=== PATIENT | female | born 1950 | race Caucasian/White ===

== ENCOUNTER 2017-05-21 20:44 | Emergency (ER) | payer SELFPAY ==
[~2017-05-21] VITALS: Ht 160 cm; Wt 63.6 kg
[2017-05-21] MEDS ORDERED: METF500T4 PO (20:52)
[2017-05-21] MEDS ORDERED: VALE100C PO (20:52)
[2017-05-21] MEDS ORDERED: OMEP20 PO (20:52)
[2017-05-21] MEDS ORDERED: CYAN500 PO (20:52)
[2017-05-21] MEDS ORDERED: LORA0.5T2 PO (20:52)
[2017-05-21] MEDS ORDERED: MEMA10TA11 PO (20:52)
[2017-05-21] MEDS ORDERED: ASCO500 PO (20:52)
[2017-05-21] MEDS ORDERED: GINK60CA2 PO (20:52)
[2017-05-21] MEDS ORDERED: VENL-68 PO (20:52)
[2017-05-21] MEDS ORDERED: LISI-660 PO (20:52)
[2017-05-21] MEDS ORDERED: MELA3TAB66 PO (20:52)
[2017-05-21] MEDS ORDERED: DONE10TA8 PO (20:52)
[2017-05-21] MEDS ORDERED: QUET25TA PO (20:52)
[2017-05-21] MEDS ORDERED: ASPIRIN 81 MG CHEWABLE TABLET PO ONE (21:30)
[2017-05-21 22:03] LABS: APPEARANCE,URINE CLEAR (CLEAR); GLUCOSE, URINE (UA) NEGATIVE (NEGATIVE); KETONES,URINE NEGATIVE (NEGATIVE); LEUKOCYTE ESTERASE ,URINE NEGATIVE (NEGATIVE); OCCULT BLOOD,URINE NEGATIVE (NEGATIVE); PROTEIN,URINE NEGATIVE (NEGATIVE)
[2017-05-21 22:10] LABS: ADD UA MICROSCOPIC NO
[2017-05-21] MEDS ORDERED: IBUPROFEN 600 MG TABLET PO ONE (22:30)
[2017-05-21] MEDS ORDERED: AZITHROMYCIN 250 MG TABLET PO ONE (22:45)
[2017-05-21 22:49] VITALS: BP 133/81
== END 2017-05-21 23:29 | disposition home or self-care (01) ==
LOC: EMS 20:46
DX: R07.89 Other chest pain (principal); J98.8 Other specified respiratory disorders; E11.9 Type 2 diabetes mellitus without complications; E78.00 Pure hypercholesterolemia, unspecified; I10 Essential (primary) hypertension; K21.9 Gastro-esophageal reflux disease without esophagitis; Z88.0 Allergy status to penicillin
CPT/HCPCS: 93005; 99285